=== PATIENT | female | born 1970 | race African-American/Black ===

== ENCOUNTER 2016-10-11 18:09 | Emergency (ER) | payer OTHER ==
[2016-10-11 18:20] VITALS: BP 132/85; PULSE 86; TEMP 98; BMI 26.6
--- NOTE | 2016-10-11 20:37 | PDOC ---
History of Present Illness - General History Source: Patient Exam Limitations: No Limitations - History of Present Illness Initial Comments: 10/11/16 21:01 The patient is a 45 year old female with significant past medical history of asthma on albuterol who presents to the ED for 1-2 months of left second and third digit numbness. She denies radiation of the numbness, loss of sensation, or trauma to the area. Patient reports left-sided headache and left-sided neck pain that radiates into the left shoulder and left scapula with associated dizziness. Denies trauma to the area, recent falls, changes in vision, or bladder/bowel incontinence. Denies lightheadedness, diaphoresis, SOB, or chest pain. She also has complaints of nausea with decreased appetite. No vomiting. Still able to tolerate fluids. States within the past few days she noted a 5lb weight loss. The patient denies fever, chills, cough, abdominal pain, and diarrhea. Allergies: NKDA Social History: No alcohol, tobacco, or drug use reported. Past Surgical History: None reported PCP: Dr. Jonathan Hudson <Fartun Back - Last Filed: 10/11/16 21:01> - General History Source: Patient <Jose Grullon - Last Filed: 10/12/16 19:50> - General Chief Complaint: Weakness Stated Complaint: WEAKNESS Time Seen by Provider: 10/11/16 20:20 Past History <Fartun Back - Last Filed: 10/11/16 21:01> - Past Medical History Anemia: No Asthma: Yes Cancer: No Cardiac Disorders: No CVA: No COPD: No CHF: No DVT: No Dementia: No Diabetes: No Dialysis: No GI Disorders: No Disorders: No HTN: No Hypercholesterolemia: No HIV: No Kidney Stones: No Liver Disease: No Psychiatric Problems: No Suicide Attempt (Hx): No Seizures: No Thyroid Disease: No Lung CA: No - Surgical History Abdominal Surgery: No Appendectomy: No Cardiac Surgery: No Cholecystectomy: No Gastric Stapling: No GI Surgery: No Lung Surgery: No Neurologic Surgery: No Orthopedic Surgery: No - Immunization History Immunization Up to Date: Yes - Psycho/Social/Smoking Cessation Hx Anxiety: No Suicidal Ideation: No Smoking Status: No Smoking History: Never smoked Have you smoked in the past 12 months: No Number of Cigarettes Smoked Daily: 0 Hx Alcohol Use: No Drug/Substance Use Hx: No Substance Use Type: None <Jose Grullon - Last Filed: 10/12/16 19:50> - Past Medical History Allergies/Adverse Reactions: Allergies Allergy/AdvReac Type Severity Reaction Status Date / Time No Known Allergies Allergy Verified 10/11/16 18:20 Home Medications: Ambulatory Orders Ibuprofen 800 mg PO TID #30 tablet 10/11/16 Methocarbamol [Robaxin -] 500 mg PO TID #30 tablet 10/11/16 Review of Systems - Review of Systems Able to Perform ROS?: Yes Comments:: 10/11/16 21:01 CONSTITUTIONAL: +decreased appetite Absent: fever, no chills, no fatigue EYES: Absent: visual changes ENT: Absent: ear pain, no sore throat CARDIOVASCULAR: Absent: chest pain, no palpitations RESPIRATORY: Absent: cough, no SOB GI: +nausea Absent: abdominal pain, no vomiting, no constipation, no diarrhea GENITOURINARY: Absent: dysuria, no frequency, no hematuria MUSCULOSKELETAL: Absent: back pain, no arthralgia, no myalgia SKIN: Absent: rash ENDOCRINE: +unexplained weight loss NEURO: +L second and third digit numbness, L sided headache and L sided neck pain that radiates into the L shoulder and L scapula, dizziness <Fartun Back - Last Filed: 10/11/16 21:01> *Physical Exam - Vital Signs Last Vital Signs Temp Pulse Resp BP Pulse Ox 98.0 F 86 20 132/85 98 10/11/16 18:17 10/11/16 18:17 10/11/16 18:17 10/11/16 18:17 10/11/16 18:17 - Physical Exam Comments: 10/11/16 21:01 GENERAL: Well-appearing, well-nourished. No apparent distress. HEENT: Normocephalic, atraumatic. PERRL, EOM intact. CARDIOVASCULAR: Normal S1, S2. Regular rate and rhythm. PULMONARY: Clear to auscultation bilaterally. ABDOMEN: Soft, non-distended, non-tender. EXTREMITIES: Normal ROM in all four extremities. No gross deformities. SKIN: Warm, dry. No rash NEUROLOGICAL: AOx3. No focal neurological deficits. Moving all extremities. <Fartun Back - Last Filed: 10/11/16 21:01> - Vital Signs Last Vital Signs Temp Pulse Resp BP Pulse Ox 98.0 F 86 20 132/85 98 10/11/16 18:17 10/11/16 18:17 10/11/16 18:17 10/11/16 18:17 10/11/16 18:17 <Jose Grullon - Last Filed: 10/12/16 19:50> ED Treatment Course - LABORATORY CBC & Chemistry Diagram: 10/11/16 22:19 10/11/16 22:19 <Jose Grullon - Last Filed: 10/12/16 19:50> Medical Decision Making - Medical Decision Making 10/12/16 19:47 Dr. Grullon: The scribe's documentation has been prepared under my direction and personally reviewed by me in its entirery. I confirm that the note above accurately reflects all work, treatment, procedures, and medical decision making performed by me. Patient complains of left sided neck and numbness to left fingers. Pt found to have slight bulge of cervical disc. Pt advised to follow up with her pcp and neurology and potentially neurosurg. <Jose Grullon - Last Filed: 10/12/16 19:50> *DC/Admit/Observation/Transfer - Attestations Scribe Attestion: 10/11/16 21:02 Documentation prepared by Fartun Back, acting as medical billing service for Jose Grullon MD <Fartun Back - Last Filed: 10/11/16 21:01> - Discharge Dispostion Admit: No <Jose Grullon - Last Filed: 10/12/16 19:50> Diagnosis at time of Disposition: Cervical disc herniation - Discharge Dispostion Disposition: HOME Condition at time of disposition: Stable - Prescriptions Prescriptions: Ibuprofen 800 mg PO TID #30 tablet Methocarbamol [Robaxin -] 500 mg PO TID #30 tablet - Referrals Referrals: Jonathan Hudson MD [Primary Care Provider] - Yogi Wallace MD [Staff Physician] - Gianni Ackerman MD [Staff Physician] - - Patient Instructions Printed Discharge Instructions: DI for Herniated Disc Additional Instructions: Please follow up with your primary care for referral to specialists, and eventual MRI
[2016-10-11 22:31] LABS: BASOPHIL 0.8 % (0-2.0); EOSINOPHIL 1.4 % (0-4.5); MCH 32.4 pg (25.7-33.7); MCHC 33.6 g/dl (32.0-36.0); MEAN CELL VOLUME 96.4 fl (80-96); MEAN PLT VOLUME 9.3 fl (7.5-11.1); PLATELET COUNT 172 K/MM3 (134-434); WHITE BLOOD COUNT 5.4 K/mm3 (4.0-10.0)
[2016-10-11 23:02] LABS: ALBUMIN 3.7 g/dl (3.4-5.0); ALK PHOS 108 U/L (45-117); ANION GAP 8 (8-16); BILIRUBIN,TOTAL 0.9 mg/dL (0.2-1.0); CALCIUM 8.6 mg/dL (8.5-10.1); CO2 30 mmol/L (21-32); CREATININE 0.7 mg/dL (0.55-1.02); GLUCOSE,RANDOM 83 mg/dL (74-106); SGOT/AST 18 U/L (15-37); SGPT/ALT 21 U/L (12-78); TOT PROT 7.6 g/dl (6.4-8.2)
[2016-10-11] MEDS ORDERED: IBUPROFEN 400 MG TABLET (FP) PO ONE ×2 (23:18→23:19)
[2016-10-11] MEDS ORDERED: METHOCARBAMOL 500 MG TABLET ONE (23:18)
[2016-10-11] MEDS ORDERED: METHOCARBAMOL 500 MG TABLET PO ONE (23:19)
== END 2016-10-11 23:32 | disposition home or self-care (01) ==
LOC: JER 18:09
DX: M50.221 Other cervical disc displacement at C4-C5 level (principal); R20.8 Other disturbances of skin sensation
CPT/HCPCS: 36415; 70450-TC; 72125-TC; 80053; 84436; 84445; 84703; 85025; 99282-25

== ENCOUNTER 2017-05-01 14:29 | Emergency (ER) | payer OTHER ==
[2017-05-01 14:34] VITALS: BP 113/74; PULSE 97; TEMP 97.8; BMI 28.2
[2017-05-01 16:11] LABS: URINE APPEARANCE SLCLOUDY; URINE BILIRUBIN NEGATIVE (NEGATIVE); URINE BLOOD 3+ (NEGATIVE); URINE COLOR YELLOW; URINE GLUCOSE (UA) NEGATIVE (NEGATIVE); URINE KETONE NEGATIVE (NEGATIVE); URINE NITRITE NEGATIVE (NEGATIVE); URINE PROTEIN NEGATIVE (NEGATIVE); URINE UROBILINOGEN NEGATIVE mg/dL (0.2-1.0)
[2017-05-01 16:30] LABS: URINE MUCUS FEW; URINE RBC 1579 /hpf (0-3); URINE WBC 20 /hpf (3-5)
--- NOTE | 2017-05-01 16:32 | PDOC ---
History of Present Illness - General Chief Complaint: Pain Stated Complaint: ABD PAIN/VAGINAL BLEEDING Time Seen by Provider: 05/01/17 15:38 - History of Present Illness Initial Comments: 05/01/17 16:20 46 yo (LMP 06/2015) post menopausal F with h/o asthma and fibroids who presents with abdominal pain. Reports 1 month of stable, unrelenting, suprapubic abdominal pain. Pain is crampy, 7/10 severity with radiation to right side flank. No aggravating factors and improved with advil. Asx. with 2 days of stable bright red vaginal bleeding requiring 1 non soaked pad per day. Patient does not visualize direct bleeding from vagina and endorses hematuria for 2 days duration. She cannot discriminate between vaginal vs. urinary bleeding. Denies weight change, N/V, fevers/chills, dysuria, urinary frequency, incontinence, diarrhea, blood per rectum. weakness, or lightheadedness. Endorses constipation with last BM yest. evening. Pt. with all vaginal deliveries. Denies h/o ovarian/nurse rn bsn malignancy or h/o hysterectomy/oophorectomy. No h/o GI procedures. Denies fam hx. of biomathematician malignancy. Denies tobacco, illicit drug uses, or alcohol use. Not currently sexually active. Last sexual partner 6 months ago. 1 Partner without barrier contraceptive. Reports h/o gonorrhea and chlamydia in past. Patient not on blood thinners. CT AP 08/2013 with left renal calculus, left ovarian cyst, severely enlarged uterine fibroids. Past History - Past Medical History Allergies/Adverse Reactions: Allergies Allergy/AdvReac Type Severity Reaction Status Date / Time No Known Allergies Allergy Verified 05/01/17 14:35 Home Medications: Ambulatory Orders Albuterol Sulfate Inhaler - [Ventolin Hfa Inhaler -] 1 - 2 inh PO Q4H PRN Anemia: No Asthma: Yes Cancer: No Cardiac Disorders: No CVA: No COPD: No CHF: No DVT: No Dementia: No Diabetes: No Dialysis: No GI Disorders: No Disorders: No HTN: No Hypercholesterolemia: No Kidney Stones: No Liver Disease: No Psychiatric Problems: No Seizures: No Thyroid Disease: No Lung CA: No - Surgical History Abdominal Surgery: No Appendectomy: No Cardiac Surgery: No Cholecystectomy: No Gastric Stapling: No GI Surgery: No Lung Surgery: No Neurologic Surgery: No Orthopedic Surgery: No - Reproductive History Is Patient Now?: No - Immunization History Immunization Up to Date: Yes - Suicide/Smoking/Psychosocial Hx Smoking Status: No Smoking History: Never smoked Have you smoked in the past 12 months: No Number of Cigarettes Smoked Daily: 0 Information on smoking cessation initiated: No Hx Alcohol Use: No Drug/Substance Use Hx: No Substance Use Type: None Review of Systems - Review of Systems Comments:: 05/01/17 16:32 GENERAL/CONSTITUTIONAL: No fever or chills. No weakness. HEAD, EYES, EARS, NOSE AND THROAT: No change in vision. No ear pain or discharge. No sore throat.- CARDIOVASCULAR: No chest pain or shortness of breath RESPIRATORY: No cough, wheezing, or hemoptysis. GASTROINTESTINAL: + Constipation. No nausea, vomiting, diarrhea. GENITOURINARY: + Hematuria. + Vaginal bleeding. No dysuria, frequency, or change in urination. MUSCULOSKELETAL: No joint or muscle swelling or pain. No neck or back pain. SKIN: No rash NEUROLOGIC: No headache, vertigo, loss of consciousness, or change in strength/ sensation. ENDOCRINE: No increased thirst. No abnormal weight change HEMATOLOGIC/LYMPHATIC: No anemia, easy bleeding, or history of blood clots. ALLERGIC/IMMUNOLOGIC: No hives or skin allergy. *Physical Exam - Vital Signs Last Vital Signs Temp Pulse Resp BP Pulse Ox 97.8 F 97 H 17 113/74 98 05/01/17 14:32 05/01/17 14:32 05/01/17 14:32 05/01/17 14:32 05/01/17 14:32 - Physical Exam Comments: 05/01/17 16:33 GENERAL: Awake, alert, and fully oriented, in no acute distress HEAD: No signs of trauma, normocephalic, atraumatic EYES: PERRLA, EOMI, sclera anicteric, conjunctiva clear ENT: Auricles normal inspection, hearing grossly normal, nares patent, oropharynx clear without exudates. Moist mucosa NECK: Normal ROM, supple, no lymphadenopathy, JVD, or masses LUNGS: No distress, speaks full sentences, clear to auscultation bilaterally HEART: Regular rate and rhythm, normal S1 and S2, no murmurs, rubs or gallops, peripheral pulses normal and equal bilaterally. ABDOMEN: + Suprpapubic TTP. Neg CVA ttp. Soft, distended, normoactive bowel sounds. No guarding, no rebound, rigidity No masses EXTREMITIES : Normal inspection, Normal range of motion, no edema. No clubbing or cyanosis. SKIN: Warm, Dry, normal turgor, no rashes or lesions noted. ED Treatment Course - LABORATORY CBC & Chemistry Diagram: 05/01/17 17:20 05/01/17 17:20 - ADDITIONAL ORDERS Additional order review: Laboratory Results 05/01/17 16:00 Urine Color Yellow Urine Appearance Slcloudy Urine pH 5.0 Urine Protein Negative Urine Glucose (UA) Negative Urine Ketones Negative Urine Blood 3+ H Urine Nitrite Negative Urine Bilirubin Negative Urine Urobilinogen Negative Urine HCG, Qual Negative Medical Decision Making - Medical Decision Making 05/01/17 16:36 46 yo (LMP 06/2015) post menopausal F with h/o asthma and fibroids who presents with suprapubic abdominal pain and 2 day h/o vaginal bleeding. Denies h/o ovarian/nurse rn bsn malignancy or h/o hysterectomy/oophorectomy. No h/o GI procedures. Denies fam hx. of biomathematician malignancy. Denies tobacco, illicit drug uses, or alcohol use. Not currently sexually active. Last sexual partner 6 months ago. Reports h/o gonorrhea and chlamydia in past. Patient not on blood thinners. CT AP 08/2013 with left renal calculus, left ovarian cyst, severely enlarged uterine fibroids. DDx: DUB, Uterine Leiomyomata, Nephrolithiasis, Hemorrhagic cystitis, MECHATRONICS TECHNOLOGIST Malignancy ED Course: CBC, CMP, UA, Urine Preg, 05/01/17 UA: Neg 3 + Blood 05/01/17 19:13 Transvaginal U/S 17 x 8 x 9cm and adnormal thickening of endometrium. 05/01/17 19:13 Stable D/C *DC/Admit/Observation/Transfer Diagnosis at time of Disposition: Dysfunctional uterine bleeding Uterine leiomyoma Qualifiers: Uterine leiomyoma location: unspecified location Qualified Code(s): D25.9 - Leiomyoma of uterus, unspecified; D25.9 - Leiomyoma of uterus, unspecified - Discharge Dispostion Disposition: HOME Condition at time of disposition: Stable Admit: No - Patient Instructions Printed Discharge Instructions: DI for Uterine Fibroids Additional Instructions: Please return to ED if you have worsening abdominal pain and/or persistent vaginal bleeding, or worsening symptoms. Please follow up with your MECHATRONICS TECHNOLOGIST physician. - Attestations Physician Attestion: 05/01/17 19:14 I attest to the provided information.
--- NOTE | 2017-05-01 16:47 | PDOC ---
Attending Attestation - Resident Resident Name: Robin Kumari - ED Attending Attestation I have performed the following: I have examined & evaluated the patient, The case was reviewed & discussed with the resident, I agree w/resident's findings & plan, Exceptions are as noted - HPI HPI: 05/01/17 17:30 46 yo female has been experiencing vaginal bleeding for 2 days. She has used 2 pads today. She states sheis post menopausal with her last menstraul cycle being 2014. She has a h/o cervical polys HEENT wnl NECK supple LUNGS cta b/l CV[facility] [id number] ABd soft,nontender PELVIC EXAM os is closed, mild amt of blood in vaginal vault NEURO axox3,ambulatory 05/01/17 17:35 - Physicial Exam PE: 05/01/17 17:35 05/01/17 17:36 PE is wriiten above - Medical Decision Making 05/01/17 17:36 46 yo female with c/o vaginal bleeding, diff diag includes hemorrhagic cystitis ,fibroids,bleeding cervical polys plan will obtain pelvic US and will have her follow up with her deli cook at [address] [place] [address]
[2017-05-01 17:26] LABS: BASOPHIL 0.7 % (0-2.0); EOSINOPHIL 3.1 % (0-4.5); MCH 32.5 pg (25.7-33.7); MCHC 34.7 g/dl (32.0-36.0); MEAN CELL VOLUME 93.6 fl (80-96); MEAN PLT VOLUME 9.3 fl (7.5-11.1); PLATELET COUNT 168 K/MM3 (134-434); RDW 13.1 % (11.6-15.6); WHITE BLOOD COUNT 6.3 K/mm3 (4.0-10.0)
[2017-05-01 17:48] LABS: ALBUMIN 3.3 g/dl (3.4-5.0); ALK PHOS 116 U/L (45-117); ANION GAP 6 (8-16); BILIRUBIN,TOTAL 0.8 mg/dL (0.2-1.0); CALCIUM 8.3 mg/dL (8.5-10.1); CO2 28 mmol/L (21-32); CREATININE 0.8 mg/dL (0.55-1.02); GLUCOSE,RANDOM 91 mg/dL (74-106); SGOT/AST 24 U/L (15-37); SGPT/ALT 28 U/L (12-78)
[2017-05-01 20:51] LABS: URINE LEUK ESTERASE Negative (NEGATIVE)
== END 2017-05-01 19:54 | disposition home or self-care (01) ==
LOC: JER 14:29
DX: D25.9 Leiomyoma of uterus, unspecified (principal); J45.909 Unspecified asthma, uncomplicated
CPT/HCPCS: 36415; 76830-TC; 80053; 81003; 81015; 84703; 85025; 99284-25

== ENCOUNTER 2018-04-13 04:48 | Emergency (ER) | payer OTHER ==
[2018-04-13 05:32] VITALS: BMI 27.1
[2018-04-13] MEDS ORDERED: KETOROLAC TROMETHAMINE 30 MG/1 ML VIAL IM ONE (05:39)
--- NOTE | 2018-04-13 05:46 | PDOC ---
History of Present Illness - General Chief Complaint: Pain Stated Complaint: LEFT ANKLE SWELLING, GENERAL. CALF PAIN Time Seen by Provider: 04/13/18 05:29 History Source: Patient Exam Limitations: No Limitations - History of Present Illness Initial Comments: 04/13/18 05:38 HISTORY OF PRESENT ILLNESS: 47-year-old postmenopausal woman with history of asthma presents emergency Department with atraumatic left calf swelling for 7 days. Patient does not remember striking leg or any awkward stents shoulder. Patient denies any recent travel, hormone replacement therapy, presents with prolonged immobility. Patient with pain in the left popliteal denies pain in the calf. Patient denies any chest pain, shortness of breath, blurry vision, dizziness, nausea, vomiting, abdominal pain, diarrhea. No recent travel or sick contacts. PAST MEDICAL HISTORY: Asthma SURGICAL HISTORY: Denies ALLERGIES: No known drug allergies REVIEW OF SYSTEMS General/Constitutional: Denies fever or chills. Denies weakness, weight change. HEENT: Denies change in vision. Denies ear pain or discharge. Denies sore throat. Cardiovascular: Denies chest pain or shortness of breath. Respiratory: Denies cough, wheezing, or hemoptysis. Gastrointestinal: Denies nausea, vomiting, diarrhea or constipation. Denies rectal bleeding. Genitourinary: Denies dysuria, frequency, or change in urination. Musculoskeletal: Left calf swelling. Denies neck or back pain. Left popliteal pain. Skin and breasts: Denies rash or easy bruising. Neurologic: Denies headache, vertigo, loss of consciousness, or loss of sensation. Psychiatric: Denies depression or anxiety. Endocrine: Denies increased thirst. Denies abnormal weight change. Hematologic/Lymphatic: Denies anemia, easy bleeding, or history of blood clots. Allergic/Immunologic: Denies hives or skin allergy. Denies latex allergy. PHYSICAL EXAM General Appearance: Well-appearing, appropriately dressed. No apparent distress , no intoxication. HEENT: EOMI, PERRLA, normal ENT inspection, normal voice, TMs normal, pharynx normal. No conjunctival pallor. No photophobia, scleral icterus. Neck: Supple. Trachea midline. No tenderness, rigidity, carotid bruit, stridor , lymphadenopathy, or thyromegaly. Respiratory/Chest: Lungs CTAB. No shortness of breath, chest tenderness, respiratory distress, accessory muscle use. No crackles, rales, rhonchi, stridor , wheezing, dullness Cardiovascular: RRR. S1, S2. No JVD, murmur, bradycardia, tachycardia. Vascular Pulses: Dorsalis-Pedis (R): 2+, Dorsalis-Pedis (L): 2+ Gastrointestinal/Abdominal: Normal bowel sounds. Abdomen soft, non-distended. No tenderness or rebound tenderness. No organomegaly, pulsatile mass, guarding, hernia, hepatomegaly, splenomegaly. Lymphatic: No adenopathy, tenderness. Musculoskeletal/Extremities: Normal inspection. FROM of all extremities, normal capillary refill. Pelvis Stable. No CVA tenderness. No tenderness to extremities, pedal edema, erythema or deformity. Left calf swelling. No erythema present. Normal temperature. -Zaira's. -Menendez's. Integumentary: Appropriate color, dry, warm. No cyanosis, erythema, jaundice or rash Neurologic: grain loader II-XII intact. Fully oriented, alert. Appropriate mood/affect. Motor strength 5/5. No appreciable EOM palsy, facial droop or sensory deficit. Past History - Past Medical History Allergies/Adverse Reactions: Allergies Allergy/AdvReac Type Severity Reaction Status Date / Time No Known Allergies Allergy Verified 04/13/18 05:01 Home Medications: Ambulatory Orders Albuterol Sulfate Inhaler - [Ventolin Hfa Inhaler -] 1 - 2 inh PO Q4H PRN Acetaminophen [Tylenol] 975 mg PO Q4H PRN 5 Days #30 capsule 04/13/18 Ciprofloxacin [Cipro -] 500 mg PO Q12H 7 Days #14 tablet 04/13/18 Ibuprofen 600 mg PO Q6H PRN 4 Days #20 tablet 04/13/18 Anemia: No Asthma: Yes Cancer: No Cardiac Disorders: No CVA: No COPD: No CHF: No DVT: No Dementia: No Diabetes: No Dialysis: No GI Disorders: No Disorders: No HTN: No Hypercholesterolemia: No Kidney Stones: No Liver Disease: No Psychiatric Problems: No Seizures: No Thyroid Disease: No Lung CA: No - Surgical History Abdominal Surgery: No Appendectomy: No Cardiac Surgery: No Cholecystectomy: No Gastric Stapling: No GI Surgery: No Lung Surgery: No Neurologic Surgery: No Orthopedic Surgery: No - Immunization History Immunization Up to Date: Yes - Suicide/Smoking/Psychosocial Hx Smoking Status: No Smoking History: Never smoked Have you smoked in the past 12 months: No Number of Cigarettes Smoked Daily: 0 Information on smoking cessation initiated: No Hx Alcohol Use: No Drug/Substance Use Hx: No Substance Use Type: None *Physical Exam - Vital Signs Last Vital Signs Temp Pulse Resp BP Pulse Ox 98.6 F 91 H 20 139/93 98 04/13/18 05:01 04/13/18 05:01 04/13/18 05:01 04/13/18 05:01 04/13/18 05:01 ED Treatment Course - LABORATORY CBC & Chemistry Diagram: 04/13/18 08:49 04/13/18 08:49 Medical Decision Making - Medical Decision Making 04/13/18 05:39 A/P: 47-year-old woman with atraumatic left calf swelling for one week No erythema present to left leg No tenderness to left calf 2+ DP pulses Pain to palpation in left popliteal Negative Menendez test Negative Homans sign Normal temperature No s/s infection present DDx: DVT, Dietz's cyst, venous insufficiency, lymphedema, muscle strain Duplex doppler, toradol 30mg IM 04/13/18 06:42 Called to bedside to address patient's concerns over her blood pressure. As explained to the patient that her blood pressure of 139/93 mildly elevated but no intervention will be provided in the emergency department. Patient is requesting blood work because "I don't feel well." It was explained to the patient that lab work will not change disposition of patient stated complaint. Patient now with complaints of rib pain and lower back pain. Lungs remain CTAB. No chest tenderness. No CVAT noted. Palpation of lower back without muscle spasms. Urinalysis, urine cx to be added to Doppler *DC/Admit/Observation/Transfer Diagnosis at time of Disposition: Pyelonephritis, Spotting - Discharge Dispostion Disposition: HOME Condition at time of disposition: Stable - Prescriptions Prescriptions: Acetaminophen [Tylenol] 975 mg PO Q4H PRN 5 Days #30 capsule PRN Reason: Pain Ciprofloxacin [Cipro -] 500 mg PO Q12H 7 Days #14 tablet Ibuprofen 600 mg PO Q6H PRN 4 Days #20 tablet PRN Reason: Pain - Referrals Referrals: Juan Montano MD [Primary Care Provider] - - Patient Instructions Printed Discharge Instructions: Kidney Infection Additional Instructions: Please make sure that you follow up with your PMD and with your OBGYN regarding the post menopausal vaginal bleeding that you described, especially because you declined pelvic examination in the ED and further evaluation of your abnormal vaginal bleeding Return for worsening/concerning symptoms, including fever/chills, vomiting. - Post Discharge Activity
[2018-04-13] MEDS ORDERED: KETOROLAC TROMETHAMINE 30 MG/1 ML VIAL ONE (06:01)
[2018-04-13] MEDS ORDERED: IBUPROFEN 400 MG TABLET (FP) PO ONE ×2 (06:23→06:31)
[2018-04-13 07:34] LABS: URINE APPEARANCE CLEAR; URINE BILIRUBIN NEGATIVE (<2.0 mg/dL); URINE COLOR LTYELLOW; URINE GLUCOSE (UA) NEGATIVE (NEGATIVE); URINE KETONE NEGATIVE (NEGATIVE); URINE LEUK ESTERASE 2+ (NEGATIVE); URINE NITRITE NEGATIVE (NEGATIVE); URINE PROTEIN NEGATIVE (NEGATIVE); URINE UROBILINOGEN NEGATIVE mg/dL (0.2-1.0)
[2018-04-13 07:38] LABS: EPI CELLS RARE /HPF (FEW); URINE MUCUS RARE
[2018-04-13 09:08] LABS: BASO % 0.8 % (0-2.0); HEMATOCRIT 41.6 % (32.4-45.2); LYMPH % 24.3 % (8-40); MCH 31.9 pg (25.7-33.7); MCHC 33.8 g/dl (32.0-36.0); MEAN CELL VOLUME 94.6 fl (80-96); MEAN PLT VOLUME 9.9 fl (7.5-11.1); MONO % 6.1 % (3.8-10.2); NEUT % 67.8 % (42.8-82.8); PLATELET COUNT 177 K/MM3 (134-434); RBC 4.39 M/mm3 (3.60-5.2); WHITE BLOOD COUNT 5.2 K/mm3 (4.0-10.0)
[2018-04-13 09:30] LABS: ALBUMIN 3.6 g/dl (3.4-5.0); ALK PHOS 117 U/L (45-117); ANION GAP 5 MMOL/L (8-16); BILIRUBIN,TOTAL 1.1 mg/dL (0.2-1); BLOOD UREA NITROGEN 10 mg/dL (7-18); CALCIUM 8.8 mg/dL (8.5-10.1); CHLORIDE 106 mmol/L (98-107); CO2 29 mmol/L (21-32); CREATININE 0.7 mg/dL (0.55-1.3); GLUCOSE,RANDOM 84 mg/dL (74-106); POTASSIUM 3.8 mmol/L (3.5-5.1); SGOT/AST 21 U/L (15-37); SGPT/ALT 24 U/L (13-61); SODIUM 141 mmol/L (136-145); TOT PROT 7.7 g/dl (6.4-8.2)
--- NOTE | 2018-04-13 11:01 | PDOC ---
ED Treatment Course - LABORATORY CBC & Chemistry Diagram: 04/13/18 08:49 04/13/18 08:49 - ADDITIONAL ORDERS Additional order review: Laboratory Results 04/13/18 04/13/18 04/13/18 08:49 08:00 07:03 Sodium 141 Potassium 3.8 Chloride 106 Carbon Dioxide 29 Anion Gap 5 L BUN 10 Creatinine 0.7 Creat Clearance w eGFR > 60 Random Glucose 84 Calcium 8.8 Total Bilirubin 1.1 H AST 21 ALT 24 Alkaline Phosphatase 117 Total Protein 7.7 Albumin 3.6 Urine Color Ltyellow Urine Appearance Clear Urine pH 7.0 D Ur Specific Moran 1.008 L Urine Protein Negative Urine Glucose (UA) Negative Urine Ketones Negative Urine Blood 1+ H Urine Nitrite Negative Urine Bilirubin Negative Urine Urobilinogen Negative Ur Leukocyte Esterase 2+ H D Urine WBC (Auto) 7 Urine RBC (Auto) 5 Ur Epithelial Cells Rare Urine Mucus Rare Urine HCG, Qual Negative 04/13/18 08:49 RBC 4.39 MCV 94.6 MCHC 33.8 RDW 13.0 MPV 9.9 Neutrophils % 67.8 Lymphocytes % 24.3 Monocytes % 6.1 Eosinophils % 1.0 Basophils % 0.8 - Medications Given in the ED: ED Medications Discontinued Medications Generic Name Dose Route Start Last Admin Trade Name Freq PRN Reason Stop Dose Admin Ibuprofen 800 mg 04/13/18 06:23 04/13/18 06:30 Motrin - PO 04/13/18 06:24 800 mg ONCE ONE Administration Ketorolac Tromethamine 30 mg 04/13/18 05:39 04/13/18 06:20 Toradol Injection - IM 04/13/18 05:40 Not Given ONCE ONE <Gianna Dumont - Last Filed: 04/13/18 10:56> - LABORATORY CBC & Chemistry Diagram: 04/13/18 08:49 04/13/18 08:49 - ADDITIONAL ORDERS Additional order review: 04/13/18 08:49 RBC 4.39 MCV 94.6 MCHC 33.8 RDW 13.0 MPV 9.9 Neutrophils % 67.8 Lymphocytes % 24.3 Monocytes % 6.1 Eosinophils % 1.0 Basophils % 0.8 - Medications Given in the ED: ED Medications Discontinued Medications Generic Name Dose Route Start Last Admin Trade Name Freq PRN Reason Stop Dose Admin Ibuprofen 800 mg 04/13/18 06:23 04/13/18 06:30 Motrin - PO 04/13/18 06:24 800 mg ONCE ONE Administration Ketorolac Tromethamine 30 mg 04/13/18 05:39 04/13/18 06:20 Toradol Injection - IM 04/13/18 05:40 Not Given ONCE ONE <Payton Scott - Last Filed: 04/14/18 07:32> Progress Note - Progress Note Progress Note: Labs WNLs, normal WBCs, Urine with +2 Leuks and 7 WBCs. SInce pt has CVA tenderness, will treat for pyelo and give ciprofloxacin. WIll also give motrin and tylenol PRN for pain. She will follow up with her PMD and her OB regarding her occasional spotting. I counseled her on the importance of follow up because post menopausal bleeding might mean cancer, she verbalized understanding, still declines my pelvic exam and further evaluation of her spotting. Pt in NAD, tolerating PO, no vomiting. Case discussed with attending who agrees with assessment and plan <Gianna Dumont - Last Filed: 04/13/18 10:56> Medical Decision Making - Medical Decision Making 04/14/18 07:32 The patient was seen and evaluated in conjunction with midlevel provider under my direct supervision, ancillary studies were reviewed. I agree with the plan as outlined by TORI Dumont <Payton Scott - Last Filed: 04/14/18 07:32> *DC/Admit/Observation/Transfer <Gianna Dumont - Last Filed: 04/13/18 10:56> - Discharge Dispostion Decision to Admit order: No <Payton Scott - Last Filed: 04/14/18 07:32> Diagnosis at time of Disposition: Pyelonephritis, Spotting - Discharge Dispostion Disposition: HOME Condition at time of disposition: Stable - Prescriptions Prescriptions: Acetaminophen [Tylenol] 975 mg PO Q4H PRN 5 Days #30 capsule PRN Reason: Pain Ciprofloxacin [Cipro -] 500 mg PO Q12H 7 Days #14 tablet Ibuprofen 600 mg PO Q6H PRN 4 Days #20 tablet PRN Reason: Pain - Referrals Referrals: Juan Montano MD [Primary Care Provider] - - Patient Instructions Printed Discharge Instructions: Kidney Infection Additional Instructions: Please make sure that you follow up with your PMD and with your OBGYN regarding the post menopausal vaginal bleeding that you described, especially because you declined pelvic examination in the ED and further evaluation of your abnormal vaginal bleeding Return for worsening/concerning symptoms, including fever/chills, vomiting. - Post Discharge Activity
[2018-04-13 11:29] VITALS: BP 127/82; PULSE 77; TEMP 98.3
== END 2018-04-13 11:29 | disposition home or self-care (01) ==
LOC: JER 04:48
DX: N12 Tubulo-interstitial nephritis, not specified as acute or chronic (principal); N95.0 Postmenopausal bleeding
CPT/HCPCS: 36415; 80053; 81003; 81015; 84703; 85025; 87086; 93971-TC; 99282-25

== ENCOUNTER 2018-04-27 03:52 | Emergency (ER) | payer OTHER ==
[2018-04-27 04:32] VITALS: BMI 27.4
--- NOTE | 2018-04-27 05:46 | PDOC ---
Attending Attestation - Resident Resident Name: Mu Fletcher - ED Attending Attestation I have performed the following: I have examined & evaluated the patient, The case was reviewed & discussed with the resident, I agree w/resident's findings & plan - HPI HPI: 04/27/18 06:30 Pt comes with what seems to be multiple unrelated complaints. Left knee arthritis with pain radiating down lateral leg to feet; Palpitations; dizziness ; nape of neck pain. No weakness. Pt took advil for the pain, but she comes because she thinks she needs an MRI. Neurologically intact. A+Ox3 and she has no gross focal neuro deficits. - Physicial Exam PE: 04/27/18 06:36 Normal Heart, lungs, afebrile. Abd soft NT ND. No flank pain. - Medical Decision Making 04/27/18 06:38 Neck XR pending. D-dimer result pending. EKG NSR. Exam normal. Pt will be signed out to the day ER team. Heart Score/ECG Review - ECG Intrepretation Rhythm: Regular Rhythm - [place]: Normal - P and [place] Prominent R with upright T in V1 (true posterior NC): No Delta Wave(s) Present: No WPW: No - QRS Poor R Wave Progression: No Q Wave Present: No - ST and T Early Repolarization: No Non Specific ST-T Wave changes: No - ECG Impressions Normal ECG: Yes Non-specific ST Elevation: No Ischemic Changes: No
--- NOTE | 2018-04-27 06:01 | PDOC ---
History of Present Illness - General Chief Complaint: Pain, Acute Stated Complaint: DIZZY/LEFT LEG PAIN - History of Present Illness Initial Comments: 04/27/18 06:00 47 yo post menopause F w/ PMH asthma, panic attacks, p/w LLE swelling and pain and lightheadedness when laying down on her left side and neck stiffness. pt was seen in our ED 3 wks ago and had duplex which was nl. denies fevers, chills, cp ,sob, n/v/d, urinary sxs, blood in stools, hormone use , recent travel, hx clots, joint pain, body aches sh: denies smoke etoh drugs Past History - Past Medical History Allergies/Adverse Reactions: Allergies Allergy/AdvReac Type Severity Reaction Status Date / Time No Known Allergies Allergy Verified 04/27/18 04:32 Home Medications: Ambulatory Orders Albuterol Sulfate Inhaler - [Ventolin Hfa Inhaler -] 1 - 2 inh PO Q4H PRN Acetaminophen [Tylenol] 975 mg PO Q4H PRN 5 Days #30 capsule 04/13/18 Ciprofloxacin [Cipro -] 500 mg PO Q12H 7 Days #14 tablet 04/13/18 Ibuprofen 600 mg PO Q6H PRN 4 Days #20 tablet 04/13/18 Anemia: No Asthma: Yes Cancer: No Cardiac Disorders: No CVA: No COPD: No CHF: No DVT: No Dementia: No Diabetes: No Dialysis: No GI Disorders: No Disorders: No HTN: No Hypercholesterolemia: No Kidney Stones: No Liver Disease: No Psychiatric Problems: No Seizures: No Thyroid Disease: No Lung CA: No - Surgical History Abdominal Surgery: No Appendectomy: No Cardiac Surgery: No Cholecystectomy: No Gastric Stapling: No GI Surgery: No Lung Surgery: No Neurologic Surgery: No Orthopedic Surgery: No - Immunization History Immunization Up to Date: Yes - Suicide/Smoking/Psychosocial Hx Smoking Status: No Smoking History: Never smoked Have you smoked in the past 12 months: No Number of Cigarettes Smoked Daily: 0 Information on smoking cessation initiated: No Hx Alcohol Use: No Drug/Substance Use Hx: No Substance Use Type: None Review of Systems - Review of Systems Constitutional: Yes: See HPI HEENTM: Yes: See HPI Respiratory: Yes: See HPI Cardiac (ROS): Yes: See HPI ABD/GI: Yes: See HPI : Yes: See HPI Musculoskeletal: Yes: See HPI Integumentary: Yes: See HPI Neurological: Yes: See HPI Endocrine: Yes: See HPI Hematologic/Lymphatic: Yes: See HPI *Physical Exam - Vital Signs Last Vital Signs Temp Pulse Resp BP Pulse Ox 99.1 F 75 18 123/84 99 04/27/18 03:55 04/27/18 03:55 04/27/18 03:55 04/27/18 03:55 04/27/18 03:55 - Physical Exam Comments: 04/27/18 05:59 GENERAL: Awake, alert, and fully oriented, in no acute distress HEAD: No signs of trauma, normocephalic, atraumatic EYES: PERRLA, EOMI, sclera anicteric, conjunctiva clear ENT: hearing grossly normal, nares patent, oropharynx clear without exudates. Moist mucosa NECK: Normal ROM, supple, no lymphadenopathy, JVD, or masses LUNGS: No distress, speaks full sentences, clear to auscultation bilaterally HEART: Regular rate and rhythm, normal S1 and S2, no murmurs, rubs or gallops, peripheral pulses normal and equal bilaterally. ABDOMEN: soft ntnd, normoactive bowel sounds. No guarding, no rebound, rigidity No masses EXTREMITIES : Normal inspection, Normal range of motion, no edema. No clubbing or cyanosis. LLE ttp. no swelling or erythema SKIN: Warm, Dry, normal turgor, no rashes or lesions noted. Medical Decision Making - Medical Decision Making 04/27/18 06:19 47 yo post menopause F w/ PMH asthma, panic attacks, p/w LLE swelling and pain and lightheadedness when laying down on her left side. pt was seen in our ED 3 wks ago and had duplex which was nl. denies fevers, chills, cp ,sob, n/v/d, urinary sxs, blood in stools, hormone use , recent travel, hx clots, joint pain, body aches temp 99.1 vitals wnl. likely muscle spasm -d-dimer to r/o dvt/pe -ekg -c-spine xr 04/27/18 07:[address] Metz f/u dimer ekg and imaging *DC/Admit/Observation/Transfer Diagnosis at time of Disposition: Left leg swelling - Discharge Dispostion Condition at time of disposition: Fair - Referrals Referrals: Juan Montano MD [Primary Care Provider] - - Patient Instructions - Post Discharge Activity
--- NOTE | 2018-04-27 07:16 | PDOC ---
*Physical Exam - Vital Signs Last Vital Signs Temp Pulse Resp BP Pulse Ox 99.1 F 75 18 123/84 99 04/27/18 03:55 04/27/18 03:55 04/27/18 03:55 04/27/18 03:55 04/27/18 03:55 <Payton Scott - Last Filed: 04/27/18 10:03> - Vital Signs Last Vital Signs Temp Pulse Resp BP Pulse Ox 99.1 F 75 18 123/84 99 04/27/18 03:55 04/27/18 03:55 04/27/18 03:55 04/27/18 03:55 04/27/18 03:55 <Jocelyne Metz - Last Filed: 04/27/18 11:33> ED Treatment Course - LABORATORY CBC & Chemistry Diagram: 04/27/18 09:00 - ADDITIONAL ORDERS Additional order review: Laboratory Results 04/27/18 04/27/18 09:00 05:51 D-Dimer 233 Sodium 143 Potassium 4.4 Chloride 112 H Carbon Dioxide 28 Anion Gap 3 L BUN 8 Creatinine 0.6 Creat Clearance w eGFR > 60 Random Glucose 87 Calcium 8.6 Total Bilirubin 1.2 H AST 19 ALT 22 Alkaline Phosphatase 107 Total Protein 7.1 Albumin 3.4 <Payton Scott - Last Filed: 04/27/18 10:03> - LABORATORY CBC & Chemistry Diagram: 04/27/18 09:00 <Jocelyne Metz - Last Filed: 04/27/18 11:33> Medical Decision Making - Medical Decision Making signed out from Dr Hunt, pending reeval. Duplex neg for donovan's cyst or DVT. D robert neg, even less likely DVT or VTE/PE. doubt cervical pathology or bony abnormalities, and no neurologic findings/ deficits. labs and lytes wnl. pt feels better. reassurance provided. remains well, VS wnl, no acute events discharge in stable condition. 04/27/18 10:03 04/27/18 10:04 <Payton Scott - Last Filed: 04/27/18 10:03> - Medical Decision Making 04/27/18 07:15 I received sign out on this patient from Dr. Fletcher. I will assume care for the patient while she is in the Emergency Department. 47 year old female presented to ED for LLE swelling, neck stiffness, lightheadedness when laying on her left side. Pt was seen for similar symptoms 04/26/18 - but left before any imaging was performed. Pt had negative LLE duplex US on 04/13/18. Pending EKG Pending d-dimer Initial Vital Signs Temp Pulse Resp BP Pulse Ox 99.1 F 75 18 123/84 99 04/27/18 03:55 04/27/18 03:55 04/27/18 03:55 04/27/18 03:55 04/27/18 03:55 Afebrile on presentation. No tachycardia on presentation. No tachypnea on presentation. Normal blood pressure. No hypoxia on room air on presentation. 04/27/18 07:35 Pt assessed. Repeat Vitals: - HR 89 - BP 122/90 - SpO2 98% on room air My examination: - Neck - no midline c-spine tenderness. full ROM. - Cardiac - normal rhythm. no tachycardia. no murmurs. - Respiratory - clear to auscultation bilaterally. - Abdomen - normal bowel sounds. no tenderness to palpation. - Extremities - non-pitting edema to left ankle. tenderness to palpation of complete left lower leg. tenderness to palpation of popliteal area. - Psych - alert. oriented x3. answering questions appropriately. No C-spine XR needed at this time. no hx of injury. Pending duplex LLE. - Concern for DVT and bakers cyst Pending CMP to evaluate for electrolyte abnormalities. EKG performed at 0630 - rate 73, regular rhythm, normal axis, normal intervals, no acute ST changes. 04/27/18 08:08 D-dimer normal. 04/27/18 09:37 CMP Sodium 143 mmol/L (136-145) 04/27/18 09:00 Potassium 4.4 mmol/L (3.5-5.1) 04/27/18 09:00 Chloride 112 mmol/L (98-107) H 04/27/18 09:00 Carbon Dioxide 28 mmol/L (21-32) 04/27/18 09:00 Anion Gap 3 MMOL/L (8-16) L 04/27/18 09:00 BUN 8 mg/dL (7-18) 04/27/18 09:00 Creatinine 0.6 mg/dL (0.55-1.3) 04/27/18 09:00 Creat Clearance w eGFR > 60 (>60) 04/27/18 09:00 Random Glucose 87 mg/dL (74-106) 04/27/18 09:00 Calcium 8.6 mg/dL (8.5-10.1) 04/27/18 09:00 Total Bilirubin 1.2 mg/dL (0.2-1) H 04/27/18 09:00 AST 19 U/L (15-37) 04/27/18 09:00 ALT 22 U/L (13-61) 04/27/18 09:00 Alkaline Phosphatase 107 U/L (45-117) 04/27/18 09:00 Total Protein 7.1 g/dl (6.4-8.2) 04/27/18 09:00 Albumin 3.4 g/dl (3.4-5.0) 04/27/18 09:00 No electrolyte abnormalities. Potassium normal. - I explained the results and handed a copy of the CMP and D-dimer results to the patient. She stated she understood. 04/27/18 09:49 Duplex LLE report - negative for DVT. no donovan's cyst. - I explained the results and handed a copy of the report to the patient. She stated she understood. 04/27/18 09:54 I discussed the entirety of the findings with the patient. I stated that while I do not have an answer to the exact reason for her symptoms, we have ruled out a DVT, donovan's cyst, and electrolyte imbalances. She stated she understood. I discussed the importance of following up with her PCP, she stated she understood. I discussed return precautions with the patient, she stated she understood. I discussed the plan for care, including discharge and PCP follow up, she stated she understood. Pt will be discharged. <Jocelyne Metz - Last Filed: 04/27/18 11:33> *DC/Admit/Observation/Transfer <Payton Scott - Last Filed: 04/27/18 10:03> <Jocelyne Metz - Last Filed: 04/27/18 11:33> Diagnosis at time of Disposition: Left leg swelling - Discharge Dispostion Condition at time of disposition: Stable - Referrals Referrals: Juan Montano MD [Primary Care Provider] - - Patient Instructions Additional Instructions: You were seen today for left leg cramping and swelling. Your blood work was normal. You do not have an electrolyte imbalance. Your d-dimer testing was normal, as we discussed, this means the likelihood of a blood clot is very low. Your ultrasound of your lower extremity was normal. Take motrin and/or tylenol over the counter for your pain. Take as advised on label. Follow up with your primary care doctor within 3 days. Call their office sunday morning and make an appointment for the soonest available. Tell them you have been seen in the Emergency Department multiple times in the last month. Your care is not complete until you follow up. Return to the Emergency Department for chest pain, shortness of breath, palpitations, fever, chills, increasing pain, increasing swelling or any other new worsening or concerning symptoms. - Post Discharge Activity
[2018-04-27 09:30] LABS: ALBUMIN 3.4 g/dl (3.4-5.0); ALK PHOS 107 U/L (45-117); ANION GAP 3 MMOL/L (8-16); BILIRUBIN,TOTAL 1.2 mg/dL (0.2-1); BLOOD UREA NITROGEN 8 mg/dL (7-18); CALCIUM 8.6 mg/dL (8.5-10.1); CHLORIDE 112 mmol/L (98-107); CO2 28 mmol/L (21-32); CREATININE 0.6 mg/dL (0.55-1.3); GLUCOSE,RANDOM 87 mg/dL (74-106); POTASSIUM 4.4 mmol/L (3.5-5.1); SGOT/AST 19 U/L (15-37); SGPT/ALT 22 U/L (13-61); SODIUM 143 mmol/L (136-145); TOT PROT 7.1 g/dl (6.4-8.2)
[2018-04-27 11:04] VITALS: BP 120/74; PULSE 72; TEMP 98.5
--- NOTE | 2018-04-27 18:02 | EKG ---
Test Reason : Blood Pressure : / mmHG Vent. Rate : 073 BPM Atrial Rate : 073 BPM P-R Int : 132 ms QRS Dur : 076 ms QT Int : 394 ms P-R-T Axes : 058 058 037 degrees QTc Int : 434 ms NORMAL SINUS RHYTHM POSSIBLE LEFT ATRIAL ENLARGEMENT BORDERLINE ECG WHEN COMPARED WITH ECG OF 11-AUG-2015 22:21, NO SIGNIFICANT CHANGE WAS FOUND Confirmed by MAXI BAUM MD ([id number]) on 04/27/2018 6:02:07 PM Referred By: Confirmed By:MAXI BAUM MD
== END 2018-04-27 10:45 | disposition home or self-care (01) ==
LOC: JER 03:52
DX: R22.42 Localized swelling, mass and lump, left lower limb (principal)
CPT/HCPCS: 36415; 80053; 85379; 93005; 93010; 93971-TC; 99283-25

== ENCOUNTER 2018-05-30 22:20 | Emergency (ER) | payer OTHER ==
[2018-05-30 22:27] VITALS: PULSE 86; BMI 25.8
--- NOTE | 2018-05-30 22:31 | PDOC ---
Attending Attestation - HPI HPI: 05/30/18 23:11 The patient is a 47 year old female, with a significant past medical history of asthma and panic attacks, who presents to the emergency department for evaluation of chest pain after eating sweet potato pie around 9:30 PM today. She states she ate a large amount with dinner this evening. She reports the chest pain as a dull ache. She states she felt food was stuck in her stomach. She also reports left neck pain today and swelling to her left ankle extremity for about a month. The patient denies shortness of breath, headache and dizziness. The patient denies fever, chills, nausea, vomit, diarrhea and constipation. The patient denies dysuria, frequency, urgency and hematuria. Allergies: NKDA Social history: denies toxic habits PCP - Dr. Montano - Physicial Exam PE: 05/30/18 23:12 GENERAL: Awake, alert, and fully oriented, in no acute distress HEAD: No signs of trauma EYES: PERRLA, EOMI, sclera anicteric, conjunctiva clear ENT: Auricles normal inspection, hearing grossly normal, nares patent, oropharynx clear without exudates. Moist mucosa NECK: (+) muscle spasm to left sternocleidomastoid . Normal ROM, supple, no lymphadenopathy, JVD, or masses LUNGS: Breath sounds equal, clear to auscultation bilaterally. No wheezes, and no crackles HEART: Regular rate and rhythm, normal S1 and S2, no murmurs, rubs or gallops ABDOMEN: Soft, nontender, normoactive bowel sounds. No guarding, no rebound. No masses EXTREMITIES: (+) minimal ankle swelling. slight localized area of redness to anteromedial left rahman. Normal range of motion, No clubbing or cyanosis. No cords, or tenderness NEUROLOGICAL: Cranial nerves II through XII grossly intact. Normal speech, normal gait SKIN: Warm, Dry, normal turgor, no rashes or lesions noted. - Medical Decision Making 05/30/18 23:11 Documentation prepared by Ilana Carpenter, acting as medical technicians for Nicole Hunt MD <Ilana Carpenter - Last Filed: 05/30/18 23:12> - Resident Resident Name: Dimitris Paige - ED Attending Attestation I have performed the following: I have examined & evaluated the patient, The case was reviewed & discussed with the resident, I agree w/resident's findings & plan - Medical Decision Making 05/31/18 00:12 Pt has left neck spasm/tenderness; pt has left ankle minimal swelling. She states that the ankle pain has been ongoing for the past 1 month. Pt complains of chest pain and epigastric pain, but she agrees that she has been eating a lot for thankgiving today. Pt's CXR demonstrates a skewed tracheal shadow. Skewed to the left side. We will order a dry CT of the neck to evaluate. Pt has a normal CBC Chem is pending. 05/31/18 00:15 Pt's CPK is elevated at 339; but she has a negative trop. 05/31/18 01:11 Patient Name: HUONG WHITING There after a wedging that THIS IS A PRELIMINARY REPORT FROM [facility] DATE OF SERVICE: 2018-05-31 00:10:18 IMAGES: 262 EXAM: CT SOFT TISSUE NECK CT W/O CONTR HISTORY: Left neck pain COMPARISON: None. FINDINGS: Parapharyngeal and retropharyngeal soft tissues appear normal without focal mass or fluid collection. Parotid, submandibular, and thyroid glands are normal. Cervical chain lymph nodes are not enlarged. Cervical vascular structures are normal in caliber. Airway appears intact. Pulmonary apices appear normal. IMPRESSION: No acute findings. Correlation with specific history is recommended 05/31/18 01:12 CK MB and MB index normal 05/31/18 20:[address] normal; pt is feeling better and she will be going home. <Nicole Hunt - Last Filed: 05/31/18 20:12>
--- NOTE | 2018-05-30 22:57 | PDOC ---
History of Present Illness - General Chief Complaint: Chest Pain Stated Complaint: CHEST PAIN Time Seen by Provider: 05/30/18 22:27 History Source: Patient Exam Limitations: No Limitations - History of Present Illness Initial Comments: 05/30/18 22:50 47 yo female, poor historian, pmh of Panic attacks and asthma presents to the ED for chest pain. Of note, patient seen in the ED 1 month ago for left leg swelling and had a negative doppler and negative DVT US. Patient states the pain started around 9 30 pm tonight after eating sweet potato pie 30 prior. Pain has since subsided but pt now complains of left neck pain. The CP was located substernal at the level of rib 4, no exacerbating or relieving symptoms , non exertional, non radiating and described as a dull ache. Currently the left sided neck pain does not limit ROM Pt denies changes in vision, recent travel, hormone use, SOB, abdominal pain, changes in bowel or bladder habits. Past History - Past Medical History Allergies/Adverse Reactions: Allergies Allergy/AdvReac Type Severity Reaction Status Date / Time No Known Allergies Allergy Verified 05/30/18 22:27 Home Medications: Ambulatory Orders Albuterol Sulfate Inhaler - [Ventolin Hfa Inhaler -] 1 - 2 inh PO Q4H PRN Acetaminophen [Tylenol] 975 mg PO Q4H PRN 5 Days #30 capsule 04/13/18 Ciprofloxacin [Cipro -] 500 mg PO Q12H 7 Days #14 tablet 04/13/18 Ibuprofen 600 mg PO Q6H PRN 4 Days #20 tablet 04/13/18 Anemia: No Asthma: Yes Cancer: No Cardiac Disorders: No CVA: No COPD: No CHF: No DVT: No Dementia: No Diabetes: No Dialysis: No GI Disorders: No Disorders: No HTN: No Hypercholesterolemia: No Kidney Stones: No Liver Disease: No Psychiatric Problems: No Seizures: No Thyroid Disease: No Lung CA: No - Surgical History Abdominal Surgery: No Appendectomy: No Cardiac Surgery: No Cholecystectomy: No Gastric Stapling: No GI Surgery: No Lung Surgery: No Neurologic Surgery: No Orthopedic Surgery: No - Immunization History Immunization Up to Date: Yes - Suicide/Smoking/Psychosocial Hx Smoking Status: No Smoking History: Never smoked Have you smoked in the past 12 months: No Number of Cigarettes Smoked Daily: 0 Information on smoking cessation initiated: No Hx Alcohol Use: No Drug/Substance Use Hx: No Substance Use Type: None Review of Systems - Review of Systems Constitutional: No: Chills, Fever HEENTM: No: Blurred Vision Respiratory: No: Shortness of Breath Cardiac (ROS): Yes: Chest Pain (subsided), Other (left sided neck pain) ABD/GI: No: Constipated, Diarrhea, Nausea, Vomiting *Physical Exam - Vital Signs Last Vital Signs Temp Pulse Resp BP Pulse Ox 98.1 F 86 18 140/90 98 05/30/18 22:24 05/30/18 22:24 05/30/18 22:24 05/30/18 22:24 05/30/18 22:24 Medical Decision Making - Medical Decision Making 47 yo female presents to ED with left neck pain and left ankle pain. Left ankle pain only with ambulation. CP resolved before ED visit. 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 No tenderness to palpation of left jaw or temporal region. No changes in vision. No carotid bruit, no crepitus Heart-no murmurs lungs clear bilaterally Abdomen - no tenderness to palpation, guarding or rebound Lower limbs- non pitting edema left lower limb, no calf tenderness. No edema on the right DDX: ACS (ekg normal, trops pending), PE (unlikely, pts left leg swelling present for over a month with no change, no calf pain, no SOB and negative D dimers and DVT studies normal), muscle strain, GERD. EKG normal sinus rhythm, no st elevations or depressions 05/30/18 23:29 patient refuse flexeril but agrees to take maalox and ibuprofen Pending: CBC CMP Cardiac Profile CXR left ankle x ray Likely discharge home if trops negative and x rays unremarkable Sign out to Dr. Edwards *DC/Admit/Observation/Transfer - Discharge Dispostion Condition at time of disposition: Fair - Referrals - Patient Instructions - Post Discharge Activity
[2018-05-30] MEDS ORDERED: MAG HYDROX/AL HYDROX/SIMETH 30 ML UNIT-DOSE CUP PO ONE (23:02)
[2018-05-30] MEDS ORDERED: CYCLOBENZAPRINE HCL 10 MG TABLET (FP) PO ONE ×2 (23:11→23:12)
[2018-05-30] MEDS ORDERED: IBUPROFEN 600 MG TABLET (FP) PO ONE ×2 (23:11→23:13)
[2018-05-30] MEDS ORDERED: CYCLOBENZAPRINE HCL 10 MG TABLET (FP) ONE (23:13)
[2018-05-30] MEDS ORDERED: MAG HYDROX/AL HYDROX/SIMETH 30 ML UNIT-DOSE CUP ONE (23:14)
[2018-05-30 23:50] LABS: BASO % 0.6 % (0-2.0); EOS % 1.6 % (0-4.5); MCH 33.6 pg (25.7-33.7); MCHC 36.1 g/dl (32.0-36.0); MEAN PLT VOLUME 9.3 fl (7.5-11.1); MONO % 9.9 % (3.8-10.2); NEUT % 61.9 % (42.8-82.8); PLATELET COUNT 169 K/MM3 (134-434); RBC 4.13 M/mm3 (3.60-5.2); RDW 13.1 % (11.6-15.6); WHITE BLOOD COUNT 5.6 K/mm3 (4.0-10.0)
[2018-05-31 00:13] LABS: ALBUMIN 3.6 g/dl (3.4-5.0); ALK PHOS 115 U/L (45-117); ANION GAP 6 MMOL/L (8-16); BILIRUBIN,TOTAL 0.5 mg/dL (0.2-1); BLOOD UREA NITROGEN 14 mg/dL (7-18); CALCIUM 9.2 mg/dL (8.5-10.1); CHLORIDE 106 mmol/L (98-107); CO2 29 mmol/L (21-32); CREATININE 0.9 mg/dL (0.55-1.3); GLUCOSE,RANDOM 101 mg/dL (74-106); POTASSIUM 4.4 mmol/L (3.5-5.1); SGOT/AST 26 U/L (15-37); SGPT/ALT 31 U/L (13-61); SODIUM 141 mmol/L (136-145); TOT PROT 7.8 g/dl (6.4-8.2)
--- NOTE | 2018-05-31 01:13 | PDOC ---
*Physical Exam - Vital Signs Last Vital Signs Temp Pulse Resp BP Pulse Ox 98.1 F 86 18 140/90 98 05/30/18 22:24 05/30/18 22:24 05/30/18 22:24 05/30/18 22:24 05/30/18 22:24 - Physical Exam Comments: 05/31/18 01:11 Patient was signed out to me by Dr. Paige. At the time of signout, we were awaiting final lab results and the ct soft tissues of the neck. ED Treatment Course - LABORATORY CBC & Chemistry Diagram: 05/30/18 23:40 05/30/18 23:40 - ADDITIONAL ORDERS Additional order review: Laboratory Results 05/30/18 23:40 Sodium 141 Potassium 4.4 Chloride 106 Carbon Dioxide 29 Anion Gap 6 L BUN 14 Creatinine 0.9 Creat Clearance w eGFR > 60 Random Glucose 101 Calcium 9.2 Total Bilirubin 0.5 AST 26 ALT 31 Alkaline Phosphatase 115 Creatine Kinase 339 H Creatine Kinase Index 0.9 CK-MB (CK-2) 3.3 Troponin I < 0.02 Total Protein 7.8 Albumin 3.6 05/30/18 23:40 RBC 4.13 MCV 93.0 MCHC 36.1 H RDW 13.1 MPV 9.3 Neutrophils % 61.9 Lymphocytes % 26.0 Monocytes % 9.9 Eosinophils % 1.6 Basophils % 0.6 - Medications Given in the ED: ED Medications Discontinued Medications Generic Name Dose Route Start Last Admin Trade Name Freq PRN Reason Stop Dose Admin Al Hydroxide/Mg Hydroxide 30 ml 05/30/18 23:02 05/30/18 23:18 Mylanta Oral Suspension - PO 05/30/18 23:03 30 ml ONCE ONE Administration Cyclobenzaprine HCl 10 mg 05/30/18 23:12 05/30/18 23:17 Flexeril - PO 05/30/18 23:13 Not Given ONCE ONE Ibuprofen 600 mg 05/30/18 23:11 05/30/18 23:17 Motrin - PO 05/30/18 23:12 600 mg ONCE ONE Administration Medical Decision Making - Medical Decision Making 05/31/18 01:11 I reviewed the labs with the patient and answered all questions that were asked. She understood the lab results. Her CK was mildly elevated. Her CT neck was ordered after a potential tracheal deviation superior to the first rib with deviation left side. 05/31/18 01:40 CT neck was negative for acute pathologies. A copy of the patient's imaging reports and labs were given at the time of discharge. The patient was able to ambulate out of the department and stated she will follow up with Dr. Montano within the next 2 days. Dispo: Discharge to home *DC/Admit/Observation/Transfer Diagnosis at time of Disposition: Atypical chest pain - Discharge Dispostion Disposition: HOME Condition at time of disposition: Fair - Referrals Referrals: Juan Montano MD [Primary Care Provider] - - Patient Instructions Printed Discharge Instructions: DI for Atypical Chest Pain Additional Instructions: Please follow up with your Primary Care Doctor and make appointment within the next 2 days. Return to the emergency room for new or worsening symptoms including but not limited to: chest pain on exertion, shortness of breath. Continue taking Motrin over the counter as needed for the pain. Thank you - Post Discharge Activity
[2018-05-31 01:18] VITALS: BP 140/86; TEMP 98.2
--- NOTE | 2018-05-31 09:58 | EKG ---
Test Reason : Blood Pressure : / mmHG Vent. Rate : 085 BPM Atrial Rate : 085 BPM P-R Int : 126 ms QRS Dur : 070 ms QT Int : 360 ms P-R-T Axes : 069 058 033 degrees QTc Int : 428 ms NORMAL SINUS RHYTHM POSSIBLE LEFT ATRIAL ENLARGEMENT WHEN COMPARED WITH ECG OF 27-APR-2018 06:30, NO SIGNIFICANT CHANGE WAS FOUND Confirmed by CLARENCE HIGGINS MD ([id number]) on 05/31/2018 9:58:24 AM Referred By: Confirmed By:CLARENCE HIGGINS MD
== END 2018-05-31 01:32 | disposition home or self-care (01) ==
LOC: JER 22:20
DX: R07.89 Other chest pain (principal)
CPT/HCPCS: 36415; 70490-TC; 71045-TC-FY; 73610-TC-LT-FY; 80053; 82550; 82553; 84484; 85025; 93005; 93010; 99283-25